=== PATIENT | male | born 1960 | race Caucasian/White ===

== ENCOUNTER → 2022-09-12 14:26 | Outpatient (BNVA) | payer OTHER, SELFPAY | PROVIDERS: PCP Internal Medicine; Visit Provider Nurse Practitioner Family | DX: G47.33 Obstructive sleep apnea (adult) (pediatric) (principal); Z99.89 Dependence on other enabling machines and devices; Z98.84 Bariatric surgery status | CPT/HCPCS: 99202 ==

== ENCOUNTER → 2022-10-04 09:50 | Outpatient (REF) | payer OTHER, SELFPAY | LOC: HO.SL 09:50 | PROVIDERS: PCP Internal Medicine; Visit Provider Nurse Practitioner Family | DX: G47.33 Obstructive sleep apnea (adult) (pediatric) (principal); Z99.89 Dependence on other enabling machines and devices | CPT/HCPCS: 95806 ==

== ENCOUNTER → 2022-11-21 09:22 | Outpatient (BNVA) | payer OTHER, SELFPAY | PROVIDERS: PCP Internal Medicine; Visit Provider Nurse Practitioner Family | DX: G47.33 Obstructive sleep apnea (adult) (pediatric) (principal); Z99.89 Dependence on other enabling machines and devices | CPT/HCPCS: 99212 ==

== ENCOUNTER 2024-03-25 07:35 | Outpatient (AMB) | payer OTHER, SELFPAY ==
--- NOTE | 2024-03-25 07:36 | A.OFFVIS_ITS ---
Vital Signs 03/25/24 07:37 Height 5 ft 11 in Weight 249 lb 2 oz BMI 34.7 BP 116/70 Blood Pressure Location Rt brachial Respiration 16 Pulse 76 Pulse Source Pulse Oximeter Pulse Oximetry (%) 97 Oxygen Delivery Method Room Air Intake Visit Reasons: 1 yr f/u for [facility] Intake Note: Pt presents for 15 month follow up for [facility]. 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 He had bariatric surgery 1 year ago -gastric sleeve , he lost 100lbs since then . 7 mths ago he stopped using CPAP as he did not have nay snoring or hypers omnia. COUNTS INCLUDE 234 BEDS AT THE [facility] Medical History (Updated 03/25/24 @ 07:57 by Juliana Diaz MD) Obstructive sleep apnea Surgical History Hx of shoulder replacement H/O gastric sleeve History of knee replacement History of back surgery Family History Sister Colon cancer Sister Breast cancer Social History Alcohol intake: never Patient Tobacco Use Status: Never used Tobacco Review of Systems ENT Reports Normal hearing present Neuro Reports Normal hearing present Physical Exam Vital Signs: Last Vital Signs Pulse 76 03/25/24 07:37 Resp 16 03/25/24 07:37 BP 116/70 03/25/24 07:37 Pulse Ox 97 03/25/24 07:37 Oxygen Delivery Method Room Air 03/25/24 07:37 BMI result Body Mass Index 34.7 Const General: cooperative Nutritional Appearance: obese Orientation/consciousness: patient oriented x3 Neck Neck: Yes full ROM and Yes supple Resp Effort & Inspection: normal respiratory effort and able to speak in complete sentences Neuro General: patient oriented x3, gait normal and moves all extremities Cranial nerves: Yes Bilaterally intact EOM present, Yes Normal facial strength present, Yes Midline tongue present, Yes Symmetric palate elevation present, Yes Normal hearing present, Yes Ability to bilaterally rotate head present and Yes Ability to bilaterally elevate shoulders present Cognition (Neuro): normal cognition Gait exam (Neuro): Normal gait present Motor exam (neuro): 5/5 motor strength present throughout, Pronator motor function not present and no tremor noted Psych Appearance: grossly normal Mental Status: mental status grossly normal Affect: normal affect Attitude: cooperative Assessment & Plan Assessment & Plan (1) Obstructive sleep apnea: Comment: lost 100lbs since his last study Code(s): G47.33 - Obstructive sleep apnea (adult) (pediatric) Category: Medical Plan Repeat Home sleep test to reevaluate. Coding Level of Care Code Est Pt Level 4 (24605) Diagnoses Obstructive sleep apnea G47.33
[2024-03-25 07:37] VITALS: BP 116/70; PULSE 76; RESP 16; O2SAT 97; BMI 34.7
== END 2024-03-25 08:00 | disposition home or self-care (01) ==
PROVIDERS: Absent Provider Psychiatry & Neurology Neurology; Visit Provider Psychiatry & Neurology Neurology
DX: G47.33 Obstructive sleep apnea (adult) (pediatric) (principal)
CPT/HCPCS: 99214

== ENCOUNTER → 2024-03-25 07:35 | Outpatient (BNVA) | payer OTHER, SELFPAY | PROVIDERS: Absent Provider Psychiatry & Neurology Neurology; Visit Provider Psychiatry & Neurology Neurology | DX: G47.33 Obstructive sleep apnea (adult) (pediatric) (principal); Z99.89 Dependence on other enabling machines and devices | CPT/HCPCS: 99212 ==

== ENCOUNTER → 2024-05-12 07:49 | Outpatient (REF) | payer OTHER, SELFPAY | LOC: HO.SL 07:49 | PROVIDERS: PCP Internal Medicine; Visit Provider Psychiatry & Neurology Neurology | DX: Z13.89 Encounter for screening for other disorder (principal) ==

== ENCOUNTER → 2024-06-19 09:45 | Outpatient (REF) | payer OTHER, SELFPAY | LOC: HO.SL 09:45 | PROVIDERS: PCP Internal Medicine; Visit Provider Psychiatry & Neurology Neurology | DX: G47.33 Obstructive sleep apnea (adult) (pediatric) (principal) | CPT/HCPCS: 95806 ==

== ENCOUNTER → 2024-06-19 09:56 | Outpatient (BNV) | payer OTHER, SELFPAY | PROVIDERS: PCP Internal Medicine; Visit Provider Psychiatry & Neurology Neurology | DX: G47.33 Obstructive sleep apnea (adult) (pediatric) (principal) | CPT/HCPCS: 95806 ==